=== PATIENT | female | born 1930 | race Caucasian/White ===

== ENCOUNTER 2017-10-10 11:06 | Emergency (ER) | payer OTHER ==
[~2017-10-10] VITALS: Ht 157.5 cm; Wt 55.0 kg
[~2017-10-10 11:06] MED LIST: AMLO2.5T2 PO; AMLO2.5T78 PO; AMLO5TAB4 PO; IBUP800T25 PO
[2017-10-10 11:08] VITALS: Ht 157.5 cm; Wt 55.0 kg
[2017-10-10] MEDS ORDERED: ONDANSETRON 4 MG INJ IV STA (13:18)
[2017-10-10] MEDS ORDERED: SOD CHLORIDE 0.9% 1,000 ML IV STA (13:18)
[2017-10-10 14:14] LABS: BASOPHILS % 0.6 % (0.0-2.0); EOSINOPHILS # 0.1 10^3/ul (0.0-0.5); HEMATOCRIT 38.9 % (37.0-47.0); HEMOGLOBIN 12.7 g/dl (12.0-16.0); LYMPHOCYTES # 1.6 10^3/ul (0.8-2.9); LYMPHOCYTES % 22.9 % (15.0-51.0); MEAN CORPUSCULAR HEMOGLOBIN 28.2 pg (29.0-33.0); MEAN CORPUSCULAR HGB CONC 32.6 g/dl (32.0-37.0); MEAN CORPUSCULAR VOLUME 86.4 fl (82.0-101.0); MEAN PLATELET VOLUME 10.5 fl (7.4-10.4); MONOCYTE # 0.7 10^3/ul (0.3-0.9); MONOCYTES % 9.2 % (0.0-11.0); NEUTROPHIL # 4.6 10^3/ul (1.6-7.5); NEUTROPHILS % 65.9 % (39.0-77.0); PLATELET COUNT 279 10^3/UL (140-415); RED CELL DISTRIBUTION WIDTH 14.4 % (11.5-14.5)
--- NOTE | 2017-10-10 14:25 | RADRPT ---
PROCEDURE: XR Chest. CLINICAL INDICATION: Chest pain TECHNIQUE: Single frontal view of the chest was obtained. COMPARISON: None FINDINGS: The heart is within normal limits. The thoracic aorta is calcified. There is no focal infiltrate. There is a moderate hiatal hernia. There is mild left lower lobe linear atelectasis. There is no pleural effusion or pneumothorax. RPTAT: AA IMPRESSION: Moderate hiatal hernia. Calcified aorta consistent with atherosclerotic disease. .Kosta Aldrich MD, MD Date Time Electronically viewed and signed by .Kosta Aldrich MD, on 10/10/2017 14:25 .S/
[2017-10-10 14:34] LABS: ALANINE AMINOTRANSFERASE 28 IU/L (13-69); ALBUMIN 3.9 g/dl (3.3-4.9); ALBUMIN/GLOBULIN RATIO 1.11; ALKALINE PHOSPHATASE 131 IU/L (42-121); ANION GAP 12 (8-16); ASPARTATE AMINO TRANSFERASE 24 IU/L (15-46); BILIRUBIN,INDIRECT 0.6 mg/dl (0-1.1); BILIRUBIN,TOTAL 0.6 mg/dl (0.2-1.3); BLOOD UREA NITROGEN 28 mg/dl (7-20); CALCIUM 9.9 mg/dl (8.4-10.2); CARBON DIOXIDE 27 mmol/L (21-31); CHLORIDE 105 mmol/L (97-110); CREATININE 1.22 mg/dl (0.44-1.00); GLUCOSE 87 mg/dl (70-220); POTASSIUM 4.3 mmol/L (3.5-5.1); SODIUM 140 mmol/L (135-144); TOTAL PROTEIN 7.4 g/dl (6.1-8.1)
[2017-10-10 14:46] LABS: TROPONIN-I < 0.012 ng/ml (0.00-0.12)
[2017-10-10 15:34] LABS: ADD UMIC YES; UR ASCORBIC ACID NEGATIVE (NEGATIVE); UR BACTERIA MANY /HPF (NONE SEEN); UR BILIRUBIN (Dip) NEGATIVE (NEGATIVE); UR BLOOD (Dip) 1+ mg/dL (NEGATIVE); UR CLARITY CLEAR (CLEAR); UR COLOR YELLOW (YELLOW); UR GLUCOSE (Dip) NEGATIVE (NEGATIVE); UR KETONES (Dip) NEGATIVE (NEGATIVE); UR LEUKOCYTE ESTERASE (Dip) NEGATIVE Leu/ul (NEGATIVE); UR NITRITE (Dip) NEGATIVE (NEGATIVE); UR RBC 1 /HPF (0-5); UR SPECIFIC GRAVITY (Dip) 1.013 (1.003-1.030); UR SQUAMOUS EPITHELIAL CELL FEW /HPF (FEW); UR TOTAL PROTEIN (Dip) NEGATIVE (NEGATIVE); UR UROBILINOGEN (Dip) NEGATIVE (NEGATIVE)
[2017-10-10] MEDS ORDERED: NITR-58 PO (16:27)
[2017-10-10] MEDS ORDERED: CIPR500T4 PO (16:27)
[2017-10-10] MEDS ORDERED: CEFTRIAXONE 1 GM/50 ML (PMX) 50 ML IVPB ONE (16:30)
[2017-10-10 16:36] VITALS: BP 148/68; PULSE 72; RESP 16; TEMP 98.3
--- NOTE | 2017-10-10 16:38 | ERD ---
ER Documentation Chief Complaint Chief Complaint Complains of weakness and cough x 3 days unable to walk HPI This 87-year-old female accompanied by family comes in for feeling generally weak for the last 3 days. She has a very mild, dry cough without shortness of breath. She states that she is able to walk, in spite of what she might of set in triage. Denies specific leg weakness. Denies any pain in her body. ROS All systems reviewed and are negative except as per history of present illness. Medications Home Meds Active Scripts Nitrofurantoin Monohyd Macrocr* (Macrobid*) 100 Mg Capsr, 100 MG PO BID, #6 CAP Prov:MATHEW HEALY DO 10/10/17 Ciprofloxacin Hcl* (Ciprofloxacin Hcl*) 500 Mg Tablet, 500 MG PO BID, #14 TAB Prov:MATHEW HEALY DO 10/10/17 Ibuprofen* (Ibuprofen*) 800 Mg Tablet, 800 MG PO Q8, #30 TAB Prov:APOLLO OLIVEROS DO 05/10/16 Reported Medications Amlodipine Besylate* (Norvasc*) 5 Mg Tablet, 5 MG PO DAILY, TAB 05/10/16 Discontinued Reported Medications Ibuprofen* (Ibuprofen*) 800 Mg Tab, 800 MG PO Q12 Y for PAIN, TAB 05/10/16 Discontinued Scripts Amlodipine Besylate* (Norvasc*) 2.5 Mg Tablet, 2.5 MG PO DAILY for 14 Days, TAB Prov:NBA PALMER MD 06/11/16 Amlodipine Besylate* (Amlodipine Besylate*) 2.5 Mg Tablet, 5 MG PO DAILY, #30 TAB Prov:APOLLO OLIVEROS DO 05/10/16 Allergies Allergies: Coded Allergies: No Known Allergy (Unverified , 01/03/12) PMhx/Soc History of Surgery: Yes (ANKLE SURGERY 2000) Anesthesia Reaction: No Hx Neurological Disorder: No Hx Respiratory Disorders: No Hx Cardiac Disorders: Yes (HTN) Hx Psychiatric Problems: No Hx Miscellaneous Medical Probl: No Hx Alcohol Use: No Hx Substance Use: No Hx Tobacco Use: Yes Smoking Status: Current every day smoker Physical Exam Vitals Vital Signs Date Time Temp Pulse Resp B/P Pulse Ox O2 Delivery O2 Flow Rate FiO2 10/10/17 13:41 98.1 69 18 152/64 100 Room Air 10/10/17 11:08 98.7 99 20 147/65 98 Physical Exam Const: [] No obvious distress. Head: Atraumatic Eyes: Normal Conjunctiva ENT: Normal External Ears, Nose and Mouth. Neck: Full range of motion..~ No meningismus. Resp: Clear to auscultation bilaterally does not cough on exam Cardio: Regular rate and rhythm, no murmurs Abd: Soft, non tender, non distended. Normal bowel sounds Skin: No petechiae or rashes Back: No midline or flank tenderness Ext: No cyanosis, or edema distal pulses intact all 4 extremities Neur: Awake and alert and oriented 3, cranial nerves II through XII intact, no focal deficits, good leg strength and arm strength laterally. Psych: Normal Mood and Affect Result Diagram: 10/10/17 1350 10/10/17 1350 Results 24 hrs Laboratory Tests Test 10/10/17 13:50 10/10/17 15:05 White Blood Count 7.010^3/ul Red Blood Count 4.5010^6/ul Hemoglobin 12.7g/dl Hematocrit 38.9% Mean Corpuscular Volume 86.4fl Mean Corpuscular Hemoglobin 28.2pg Mean Corpuscular Hemoglobin Concent 32.6g/dl Red Cell Distribution Width 14.4% Platelet Count 72679^3/UL Mean Platelet Volume 10.5fl Neutrophils % 65.9% Lymphocytes % 22.9% Monocytes % 9.2% Eosinophils % 1.0% Basophils % 0.6% Nucleated Red Blood Cells % 0.0/100WBC Neutrophils # 4.610^3/ul Lymphocytes # 1.610^3/ul Monocytes # 0.710^3/ul Eosinophils # 0.110^3/ul Basophils # 0.010^3/ul Nucleated Red Blood Cells # 0.010^3/ul Sodium Level 140mmol/L Potassium Level 4.3mmol/L Chloride Level 105mmol/L Carbon Dioxide Level 27mmol/L Anion Gap 12 Blood Urea Nitrogen 28mg/dl Creatinine 1.22mg/dl Glucose Level 87mg/dl Lactic Acid Level 1.1mmol/L Calcium Level 9.9mg/dl Total Bilirubin 0.6mg/dl Direct Bilirubin 0.00mg/dl Indirect Bilirubin 0.6mg/dl Aspartate Amino Transf (AST/SGOT) 24IU/L Alanine Aminotransferase (ALT/SGPT) 28IU/L Alkaline Phosphatase 131IU/L Troponin I < 0.012ng/ml Total Protein 7.4g/dl Albumin 3.9g/dl Globulin 3.50g/dl Albumin/Globulin Ratio 1.11 Lipase 153U/L Urine Color YELLOW Urine Clarity CLEAR Urine pH 6.0 Urine Specific Garber 1.013 Urine Ketones NEGATIVEmg/dL Urine Nitrite NEGATIVEmg/dL Urine Bilirubin NEGATIVEmg/dL Urine Urobilinogen NEGATIVEmg/dL Urine Leukocyte Esterase NEGATIVELeu/ul Urine Microscopic RBC 1/HPF Urine Microscopic WBC 17/HPF Urine Squamous Epithelial Cells FEW/HPF Urine Bacteria MANY/HPF Urine Hemoglobin 1+mg/dL Urine Glucose NEGATIVEmg/dL Urine Total Protein NEGATIVEmg/dl Current Medications Medications (Trade) Dose Ordered Sig/Tessa Route PRN Reason Start Time Stop Time Status Last Admin Dose Admin Sodium Chloride (NS) 1,000 ml @ 1,000 mls/hr Q1H STAT IV 10/10/17 13:18 10/10/17 14:17 DC 10/10/17 13:57 Ondansetron HCl 4 mg 4 mg ONCE STAT IV 10/10/17 13:18 10/10/17 13:21 DC 10/10/17 13:57 Ceftriaxone Sodium (Rocephin) 50 ml @ 100 mls/hr ONCE ONCE IVPB 10/10/17 16:30 10/10/17 16:59 10/10/17 16:10 Procedures/MDM Urinary tract infection possibly causing the patient's symptoms. No signs of sepsis. Patient was given IV fluid hydration and does have mild renal insufficiency. Nonischemic EKG. Is acute coronary syndrome. No signs of meningitis. Given a gram of Rocephin for a complicated UTI and that she is 87 years old and experiencing weakness. I am also going to discharge her with Cipro for 7 days as well as a few days of Macrobid as patient is asymptomatic currently and is ambulating good to the bathroom and back that she can be safely discharged with her . I am going to discharge her with primary care follow-up in 2-3 days and strict return precautions to the ER for any concerning symptoms. EKG interpretation: Normal sinus rhythm rate of 71, normal axis, no ST or T- wave changes concerning for acute ischemia, normal intervals. Nonspecific ST-T wave changes. 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 MATHEW HEALY DO Oct 10, 2017 16:38
== END 2017-10-10 16:38 | disposition home or self-care (01) ==
LOC: E/R 11:06
DX: N39.0 Urinary tract infection, site not specified (principal); R53.1 Weakness; N28.9 Disorder of kidney and ureter, unspecified; I10 Essential (primary) hypertension; F17.210 Nicotine dependence, cigarettes, uncomplicated
CPT/HCPCS: 36415; 71010; 80053; 81001; 83605; 83690; 84484; 85025; 96374; 96375; 99285; J0696; J2405; J7030; P9612

== ENCOUNTER 2017-12-13 10:05 | Emergency (ER) | END 2017-12-13 11:54 | disposition home or self-care (01) ==